=== PATIENT | female | born 1980 | race Caucasian/White ===

== ENCOUNTER 2018-10-22 02:07 | Emergency (ER) | payer OTHER ==
[~2018-10-22] VITALS: Ht 172.7 cm; Wt 56.2 kg
[2018-10-22 02:12] VITALS: BP 137/97
--- NOTE | 2018-10-22 02:17 | NUR ---
PT AMBULATED TO BED 1
--- NOTE | 2018-10-22 02:20 | NUR ---
DR BARRIGA AT BEDSIDE
--- NOTE | 2018-10-22 02:28 | NUR ---
BIB SELF. COUGH, SINUS PAIN, MAGUIRE, PLEURITIC CP, X2 DAYS. DENIES FEVER, NVD, SOB AT THIS TIME. BED IN LOW LOCKED POSITION. NO RESP DISTRESS OR LABORED BREATHING AT THIS TIME.
[2018-10-22 02:35] VITALS: BP 137/97
--- NOTE | 2018-10-22 02:35 | NUR ---
Patient discharged with v/s stable. Written and verbal after care instructions given and explained. Patient alert, oriented and verbalized understanding of instructions. Ambulatory with steady gait. All questions addressed prior to discharge. ID band removed. Patient advised to follow up with PMD. Rx of NAPROSYN, GUAIATUSSIN, CETIRIZINE, FLONASE given. Patient educated on indication of medication including possible reaction and side effects. Opportunity to ask questions provided and answered.
== END 2018-10-22 02:35 | disposition home or self-care (01) ==
LOC: MED 02:07
DX: J32.9 Chronic sinusitis, unspecified (principal); Z98.890 Other specified postprocedural states; Z88.5 Allergy status to narcotic agent
CPT/HCPCS: 87804; 99283

== ENCOUNTER 2020-12-16 20:43 | Emergency (ER) | payer OTHER ==
[~2020-12-16] VITALS: Ht 172.7 cm; Wt 63.0 kg
[2020-12-16 20:48] VITALS: BP 129/78
[2020-12-16] MEDS ORDERED: ONDA-24 PO (20:50)
[2020-12-16] MEDS ORDERED: EMTR1TAB12 PO (20:50)
[2020-12-16] MEDS ORDERED: RALT400T PO (20:50)
--- NOTE | 2020-12-16 20:52 | NUR ---
lab in triage for blood collection.
[2020-12-16] MEDS ORDERED: EMTRICITABINE/TENOFOVIR 200-300MG 1 TAB PO STA (21:00)
[2020-12-16] MEDS ORDERED: ONDANSETRON 4 MG ODT PO ONE (21:00)
[2020-12-16 21:28] VITALS: BP 129/78
--- NOTE | 2020-12-16 21:29 | NUR ---
NO NURSING INTERVENTIONS NEEDED. PT EVALUATED BY RITU
--- NOTE | 2020-12-16 21:30 | NUR ---
Patient discharged with v/s stable. Written and verbal after care instructions given and explained. Patient alert, oriented and verbalized understanding of instructions. Ambulatory with steady gait. All questions addressed prior to discharge. ID band removed. Patient advised to follow up with PMD. Rx of TRUVAMANDA BARBA AND ISENTRESS given. Patient educated on indication of medication including possible reaction and side effects. Opportunity to ask questions provided and answered.
[2020-12-19 06:07] LABS: HEPATITIS B SURFACE ANTIGEN Negative (Negative)
== END 2020-12-16 21:30 | disposition home or self-care (01) ==
LOC: MED 20:43
DX: S69.90XA Unspecified injury of unspecified wrist, hand and finger(s), initial encounter (principal); J45.909 Unspecified asthma, uncomplicated; Z79.899 Other long term (current) drug therapy; Z88.5 Allergy status to narcotic agent; W46.0XXA Contact with hypodermic needle, initial encounter; Y93.89 Activity, other specified; Y92.89 Other specified places as the place of occurrence of the external cause; Y99.8 Other external cause status
CPT/HCPCS: 36415; 86592; 86702; 86803; 87340; 99283; Q0162

== ENCOUNTER 2021-03-24 05:20 | Emergency (ER) | payer OTHER ==
[~2021-03-24] VITALS: Ht 172.7 cm; Wt 61.2 kg
[2021-03-24 05:20] VITALS: BP 119/72
[~2021-03-24 05:20] MED LIST: EMTR1TAB12 PO; ONDA-24 PO; RALT400T PO
--- NOTE | 2021-03-24 05:20 | NUR ---
TO [facility]
--- NOTE | 2021-03-24 05:30 | NUR ---
Dr. Roldan examining patient.
[2021-03-24 05:52] VITALS: BP 120/81
--- NOTE | 2021-03-24 05:53 | NUR ---
Patient discharged with v/s stable. Written and verbal after care instructions given and explained. Patient verbalized understanding. Ambulatory with steady gait. All questions addressed prior to discharge. Advised to follow up with PMD.
== END 2021-03-24 05:53 | disposition home or self-care (01) ==
LOC: MED 05:20
DX: J32.9 Chronic sinusitis, unspecified (principal); J45.909 Unspecified asthma, uncomplicated; Z88.5 Allergy status to narcotic agent; Z79.899 Other long term (current) drug therapy; Z20.822 Contact with and (suspected) exposure to COVID-19
CPT/HCPCS: 87804; 99283; U0003